=== PATIENT | female | born 1935 | race Caucasian/White ===

== ENCOUNTER 2019-07-31 14:46 | Emergency (ER) | payer OTHER ==
--- NOTE | 2019-07-31 16:04 | ER ---
Nurse's Notes [facility] Name: Dione Grady Age: 83 yrs Sex: Female : 1935 Arrival Date: 07/31/2019 Time: 14:46 Bed 23 Private MD: Unknown, Unknown Diagnosis: Pain in right hand Presentation: 07/31 15:02 Presenting complaint: Patient states: "Swatted a gnat on the wall with right hand and ss now right middle finger is hurting really bad." Bruising noted to right middle knuckle and pt reports hitting the wall with the palm of her hand. Transition of care: patient was not received from another setting of care. Onset of symptoms was July 31, 2019 at 12:30. Risk Assessment: Do you want to hurt yourself or someone else? Patient reports no desire to harm self or others. Initial Sepsis Screen: Does the patient meet any 2 criteria? No. Patient's initial sepsis screen is negative. Does the patient have a suspected source of infection? No. Patient's initial sepsis screen is negative. Care prior to arrival: Splint applied. 15:02 Method Of Arrival: Ambulatory ss 15:02 Acuity: CRISTÓBAL 4 ss Triage Assessment: 15:05 General: Appears in no apparent distress. uncomfortable, Behavior is calm, cooperative, ss appropriate for age. Pain: Complains of pain in dorsal aspect of proximal phalanx of right middle finger Pain currently is 8 out of 10 on a pain scale. Neuro: Level of Consciousness is awake, alert, obeys commands, Oriented to person, place, time, situation. Cardiovascular: Patient's skin is warm and dry. Respiratory: Airway is patent Respiratory effort is even, unlabored, Respiratory pattern is regular, symmetrical. Musculoskeletal: Range of motion: intact in all extremities, Swelling present in dorsal aspect of proximal phalanx of right middle finger. Injury Description: Bruise sustained to dorsal aspect of proximal phalanx of right middle finger. Historical: - Allergies: 15:05 Codeine; ss - Home Meds: 15:05 None [Active]; ss - PMHx: 15:05 None; ss - PSHx: 15:05 partial thyroidectomy; Carpal Tunnel Repair; Knee surgery; sinus; ss - Immunization history:: Adult Immunizations up to date. - Social history:: Smoking status: Patient/guardian denies using tobacco. - Ebola Screening: : No symptoms or risks identified at this time. Screenin:28 Abuse screen: Denies threats or abuse. Denies injuries from another. Nutritional rv screening: No deficits noted. Tuberculosis screening: No symptoms or risk factors identified. Fall Risk None identified. Assessment: 16:27 General: Appears in no apparent distress. comfortable, Behavior is calm, cooperative. rv Pain: Complains of pain in right hand. Neuro: Level of Consciousness is awake, alert, obeys commands, Oriented to person, place, time, situation. Cardiovascular: Capillary refill < 3 seconds. Respiratory: Airway is patent. GI: No signs and/or symptoms were reported involving the gastrointestinal system. : No signs and/or symptoms were reported regarding the genitourinary system. EENT: No signs and/or symptoms were reported regarding the EENT system. Derm: Bruising that is dark purple. Musculoskeletal: No signs and/or symptoms reported regarding the musculoskeletal system. Vital Signs: 15:05 BP 135 / 72; Pulse 70; Resp 18 S; Temp 97.2(TE); Pulse Ox 100% on R/A; Pain 8/10; ss ED Course: 14:46 Patient arrived in ED. ag5 14:47 Unknown, Unknown is Private Physician. ag5 14:59 Jesús Martínez FNP-C is PHCP. la1 14:59 Jesús Martínez FNP-C is PHCP. la1 14:59 Raciel Gastelum MD is Attending Physician. la1 15:04 Triage completed. ss 15:05 Arm band placed on right wrist. ss 15:14 Aroldo Bangura, CARRIE is Primary Nurse. rv 15:18 Patient maintains SpO2 saturation greater than 95% on room air. jp3 15:19 Bed in low position. Call light in reach. Warm blanket given. Ice pack to injury. jp3 Verbal reassurance given. Pulse ox on. NIBP on. 15:44 Hand Right 3 View XRAY In Process Unspecified. EDMS 15:45 X-ray(s) taken. jp3 16:28 No provider procedures requiring assistance completed. Patient did not have IV access rv during this emergency room visit. Administered Medications: No medications were administered Outcome: 16:00 Discharge ordered by . la1 16:28 Discharged to home ambulatory. rv 16:28 Condition: good 16:28 Discharge instructions given to patient, Instructed on discharge instructions, follow up and referral plans. Demonstrated understanding of instructions, follow-up care. 16:29 Patient left the ED. rv Signatures: Dispatcher [employer] EDTammei Yee RN RN ss Jesús Martínez, AUDIO VISUAL TECH-C AUDIO VISUAL TECH-Cla1 Aroldo Bangura RN RN rv Michael Batista jp3 Aishwarya Packer 5
--- NOTE | 2019-07-31 16:05 | EDPHYS ---
Physician Documentation [facility] Name: Dione Grady Age: 83 yrs Sex: Female : 1935 Arrival Date: 07/31/2019 Time: 14:46 Bed 23 Private MD: Unknown, Unknown ED Physician Raciel Gastelum HPI: 07/31 15:23 This 83 yrs old Female presents to ER via Ambulatory with complaints of la1 Finger Injury, Hand Injury. 15:23 Trauma demographics: County: The injury occurred in [place]. Mechanism of injury: la1 swatting at gnat. Associated injuries: The patient sustained right hand and dorsal aspect of proximal phalanx of right middle finger, ecchymosis, painful injury, swelling. Onset: The symptoms/episode began/occurred this morning. The patient has not experienced similar symptoms in the past. PT was at home and attempted to swat a gnat. After swatting her right hand began swelling and having pain at the base of her right third finger. Historical: - Allergies: 15:05 Codeine; ss - Home Meds: 15:05 None [Active]; ss - PMHx: 15:05 None; ss - PSHx: 15:05 partial thyroidectomy; Carpal Tunnel Repair; Knee surgery; sinus; ss - Immunization history:: Adult Immunizations up to date. - Social history:: Smoking status: Patient/guardian denies using tobacco. - Ebola Screening: : No symptoms or risks identified at this time. ROS: 15:25 Constitutional: Negative for fever, chills, and weight loss, Eyes: Negative for injury, la1 pain, redness, and discharge, ENT: Negative for injury, pain, and discharge, Neck: Negative for injury, pain, and swelling, Cardiovascular: Negative for chest pain, palpitations, and edema, Respiratory: Negative for shortness of breath, cough, wheezing, and pleuritic chest pain, Abdomen/GI: Negative for abdominal pain, nausea, vomiting, diarrhea, and constipation, Back: Negative for injury and pain. 15:25 MS/extremity: Positive for ecchymosis, pain, of the right hand and dorsal aspect of proximal phalanx of right middle finger. Exam: 15:25 Constitutional: This is a well developed, well nourished patient who is awake, alert, la1 and in no acute distress. Head/Face: Normocephalic, atraumatic. Chest/axilla: Normal chest wall appearance and motion. Nontender with no deformity. No lesions are appreciated. Cardiovascular: Normal PMI, no JVD. No pulse deficits. Respiratory: No increased work of breathing, no retractions or nasal flaring. 15:25 Musculoskeletal/extremity: Extremities: noted in the right hand and dorsal aspect of proximal phalanx of right middle finger: decreased ROM, ecchymosis, pain, swelling, tenderness, Circulation is intact in all extremities. Pulses: are normal with no appreciated deficits, Perfusion: the patient is normally perfused throughout, pink, Perfusion: the extremity is normally perfused throughout, pink, Sensation intact. Vital Signs: 15:05 BP 135 / 72; Pulse 70; Resp 18 S; Temp 97.2(TE); Pulse Ox 100% on R/A; Pain 8/10; ss MDM: 15:11 Patient medically screened. he 15:56 Data reviewed: vital signs, radiologic studies, and as a result, I will discharge la1 patient. Data interpreted: Pulse oximetry: on room air is 100 %. Interpretation: normal. Counseling: I had a detailed discussion with the patient and/or guardian regarding: the historical points, exam findings, and any diagnostic results supporting the discharge/admit diagnosis, radiology results, the need for outpatient follow up, a family practitioner, to return to the emergency department if symptoms worsen or persist or if there are any questions or concerns that arise at home. ED course: No displaced fractures identified on wet read of the plain film three view. Pain is under control in ED, neurovascular status intact.. 07/31 15:10 Order name: Hand Right 3 View XRAY la1 Administered Medications: No medications were administered Disposition: 17:15 Co-signature as Attending Physician, Raciel Gastelum MD I agree with the assessment and he plan of care. Disposition: 07/31/19 16:00 Discharged to Home. Impression: Pain in right hand. - Condition is Stable. - Discharge Instructions: Musculoskeletal Pain, Hand Pain. - Medication Reconciliation Form, Thank You Letter form. - Follow up: Private Physician; When: 2 - 3 days; Reason: Recheck today's complaints, Re-evaluation by your physician. - Problem is new. - Symptoms have improved. Signatures: Dispatcher [employer] Raciel Jama MD MD he Smirch, Tammie, RN RN ss Jesús Martínez, COLLECTIONS CLERK-C COLLECTIONS CLERK-Cla1 Aroldo Bangura, RN RN rv Corrections: (The following items were deleted from the chart) 16:29 16:00 07/31/2019 16:00 Discharged to Home. Impression: Pain in right hand. Condition is rv Stable. Forms are Medication Reconciliation Form, Thank You Letter, Antibiotic Education, Prescription Opioid Use. Follow up: Private Physician; When: 2 - 3 days; Reason: Recheck today's complaints, Re-evaluation by your physician. Problem is new. Symptoms have improved. la1
[2019-07-31 16:36] VITALS: BP 135/72; TEMP 97.2; O2SAT 100
--- NOTE | 2019-07-31 16:53 | RAD REPORT ---
EXAM DESCRIPTION: RAD - Hand Right 3 View - 07/31/2019 3:44 pm CLINICAL HISTORY: Right hand pain following trauma pain primarily third digit COMPARISON: None. FINDINGS: No fractures identified. There is ventral partial subluxation of the second and third prox imal phalanges at the MCP joints. No dislocation. No periosteal reaction. IP joint and MCP joint spac e narrowing present. No erosive component. Degenerative change present at the scaphoid trapezium tera culation. No foreign body or other soft tissue abnormality. IMPRESSION: No fracture changes are identifiable. Patient does have slight ventral subluxation of th e second and third proximal phalanges at the MCP joints.
== END 2019-07-31 16:29 | disposition home or self-care (01) ==
LOC: ER 14:46
DX: M79.641 Pain in right hand (principal); W22.8XXA Striking against or struck by other objects, initial encounter; Y93.9 Activity, unspecified; Y92.9 Unspecified place or not applicable; Z88.6 Allergy status to analgesic agent
CPT/HCPCS: 99284

== ENCOUNTER 2022-08-10 10:25 | Emergency (ER) | payer OTHER ==
--- NOTE | 2022-08-10 11:01 | RAD REPORT ---
EXAM DESCRIPTION: RAD - Chest Single View - 08/10/2022 10:54 am CLINICAL HISTORY: COUGH COMPARISON: CHEST PA AND LAT 2 VIEW dated 05/19/2012 FINDINGS: Lines: None. Lungs: No evidence of edema or pneumonia. Pleural: No significant pleural effusions or pneumothorax. Cardiac: The heart size is within normal limits. Mediastinum: Within normal limits. Bones: No acute fractures. Other: None IMPRESSION: No acute cardiopulmonary disease.
[2022-08-10 11:36] LABS: SARS-COV-2 RT PCR POSITIVE (NEGATIVE)
--- NOTE | 2022-08-10 11:42 | EDPHYS ---
Physician Documentation [facility] Name: Dione Grady Age: 86 yrs Sex: Female : 1935 Arrival Date: 08/10/2022 Time: 10:28 Bed DIS1 Private MD: ED Physician Donald Ceballos HPI: 08/10 10:37 This 86 yrs old Female presents to ER via Ambulatory with complaints of Cough. jmm 10:37 The patient or guardian reports cough. Onset: The symptoms/episode began/occurred jmm gradually, last night. Modifying factors: The symptoms are alleviated by nothing. This is an 86 year old female with no chronic medical conditions that presents to the ED with complaints cough with inferior sternal pain beginning last night. Patient denies sob, fever. Denies vomiting or diarrhea. . Historical: - Allergies: 10:35 No Known Allergies; kb3 - Home Meds: 10:35 None [Active]; kb3 - PMHx: 10:35 None; kb3 - PSHx: 10:35 None; kb3 - Immunization history:: Adult Immunizations up to date, Client reports receiving the 2nd dose of the Covid vaccine, Last tetanus immunization: unknown. - Social history:: Smoking status: Patient denies any tobacco usage or history of. ROS: 10:37 Constitutional: Negative for fever, chills, and weight loss. jmm 10:37 Cardiovascular: Positive for chest pain, with cough. 10:37 Respiratory: Positive for cough. 10:37 All other systems are negative. Exam: 10:37 Constitutional: This is a well developed, well nourished patient who is awake, alert, jmm and in no acute distress. Head/Face: atraumatic. Eyes: EOMI, no conjunctival erythema appreciated ENT: Moist Mucus Membranes Neck: Trachea midline, Supple 10:37 Cardiovascular: Regular rate and rhythm. No edema appreciated Respiratory: Normal respirations, no respiratory distress appreciated Abdomen/GI: Non distended Back: Normal ROM 10:37 Skin: General appearance color normal MS/ Extremity: Moves all extremities, no obvious deformities appreciated, no edema noted to the lower extremities Neuro: Awake and alert Psych: Behavior is normal, Mood is normal, Patient is cooperative and pleasant 10:37 Chest/axilla: Palpation: tenderness, that is moderate, of the xiphoid area. 10:37 Abdomen/GI: Inspection: abdomen appears normal, Palpation: abdomen is soft and non-tender, in all quadrants. Vital Signs: 10:32 BP 132 / 75; Pulse 77; Resp 20; Temp 98.1; Pulse Ox 100% ; Weight 58.97 kg; Height 5 kb3 ft. 3 in. (160.02 cm); Pain 0/10; 10:32 Body Mass Index 23.03 (58.97 kg, 160.02 cm) kb3 MDM: 10:42 Patient medically screened. [facility] 11:36 Data reviewed: vital signs, nurses notes. Counseling: I had a detailed discussion with [facility] the patient and/or guardian regarding: the historical points, exam findings, and any diagnostic results supporting the discharge/admit diagnosis. 11:36 Counseling: I had a detailed discussion with the patient and/or guardian regarding: lab m results, radiology results, the need for outpatient follow up. 11:40 ED course: Patient is alert and non toxic in appearance in the ED. No signs of resp [facility] distress. Patient advised to follow up with pcp and otherwise given strict return precautions. Patient understood and agrees with the plan of care. . 08/10 10:36 Order name: COVID-19/FLU A+B; Complete Time: 11:37 [facility] 08/10 10:36 Order name: Chest Single View XRAY; Complete Time: 11:04 [facility] Administered Medications: No medications were administered Disposition: 18:00 Co-signature as Attending Physician, Donald COBB was immediately available on-site ms3 in the Emergency Department for consultation in the care of the patient. Disposition Summary: 08/10/22 11:42 Discharge Ordered Location: Home [facility] Condition: Stable [facility] Diagnosis - Coronavirus infection, unspecified [facility] Followup: [facility] - With: Private Physician - When: 2 - 3 days - Reason: Recheck today's complaints, Continuance of care, Re-evaluation by your physician Discharge Instructions: - Discharge Summary Sheet [facility] - COVID-19 [facility] Forms: - Medication Reconciliation Form [facility] - Thank You Letter [facility] - Antibiotic Education [facility] - Prescription Opioid Use [facility] Prescriptions: - benzonatate 200 mg Oral Capsule - take 1 capsule by ORAL route 3 times per day as needed; 20 capsule; Refills: 0, [facility] Product Selection Permitted Signatures: Dispatcher [employer] Jamaal Ramos PA PA jmm Sims, Marcus, DO DO ms3 Kianna Feliciano, RN RN kb3 Corrections: (The following items were deleted from the chart) 10:35 10:35 Allergies: Codeine; kb3 kb3
--- NOTE | 2022-08-10 11:42 | ER ---
Nurse's Notes [facility] Name: Dione Grady Age: 86 yrs Sex: Female : 1935 Arrival Date: 08/10/2022 Time: 10:28 Bed DIS1 Private MD: Diagnosis: Coronavirus infection, unspecified Presentation: 08/10 10:32 Chief complaint: Patient states: Pt reports dry hacking cough that began last night. kb3 Denies fever, congestion, no sick contacts. Reports pain in lower chest/eigastric region only when coughing that began this morning. Coronavirus screen: Vaccine status: Patient reports receiving the 2nd dose of the covid vaccine. Client denies travel out of the [place] in the last 14 days. Ebola Screen: Patient negative for fever greater than or equal to 101.5 degrees Fahrenheit, and additional compatible Ebola Virus Disease symptoms Patient denies exposure to infectious person. Patient denies travel to an Ebola-affected area in the 21 days before illness onset. Initial Sepsis Screen: Does the patient meet any 2 criteria? No. Patient's initial sepsis screen is negative. Does the patient have a suspected source of infection? No. Patient's initial sepsis screen is negative. Risk Assessment: Do you want to hurt yourself or someone else? Patient reports no desire to harm self or others. Onset of symptoms was August 10, 2022 at 03:00. 10:32 Method Of Arrival: Ambulatory kb3 10:32 Acuity: CRISTÓBAL 4 kb3 Triage Assessment: 10:35 General: Appears in no apparent distress. Behavior is calm, cooperative. Pain: Denies kb3 pain. Historical: - Allergies: 10:35 No Known Allergies; kb3 - Home Meds: 10:35 None [Active]; kb3 - PMHx: 10:35 None; kb3 - PSHx: 10:35 None; kb3 - Immunization history:: Adult Immunizations up to date, Client reports receiving the 2nd dose of the Covid vaccine, Last tetanus immunization: unknown. - Social history:: Smoking status: Patient denies any tobacco usage or history of. Screenin:40 [facility] ED Fall Risk Assessment (Adult) History of falling in the last 3 months, kb3 including since admission No falls in past 3 months (0 pts) Confusion or Disorientation No (0 pts) Intoxicated or Sedated No (0 pts) Impaired Gait No (0 pts) Mobility Assist Device Used No (0 pt) Altered Elimination No (0 pt) Score/Fall Risk Level 0 - 2 = Low Risk Oriented to surroundings, Maintained a safe environment, Educated pt \T\ family on fall prevention, incl call for assistance when getting out of bed, Assessed \T\ reinforced patient's understanding of fall precautions, Hourly rounding (assess needs \T\ fall precautionary measures) done. Abuse screen: Denies threats or abuse. Denies injuries from another. Nutritional screening: No deficits noted. Tuberculosis screening: No symptoms or risk factors identified. Assessment: 10:40 General: see triage note. kb3 10:40 Respiratory: Reports cough that is Airway is patent Respiratory effort is even, kb3 unlabored, Breath sounds are clear bilaterally. Vital Signs: 10:32 BP 132 / 75; Pulse 77; Resp 20; Temp 98.1; Pulse Ox 100% ; Weight 58.97 kg; Height 5 kb3 ft. 3 in. (160.02 cm); Pain 0/10; 10:32 Body Mass Index 23.03 (58.97 kg, 160.02 cm) kb3 ED Course: 10:28 Patient arrived in ED. mr 10:33 Jamaal Gomez PA is PHCP. jmm 10:33 Donald Ceballos DO is Attending Physician. jmm 10:35 Triage completed. kb3 10:35 Arm band placed on right wrist. kb3 10:40 Kianna Feliciano, RN is Primary Nurse. kb3 10:40 Patient has correct armband on for positive identification. kb3 10:40 No provider procedures requiring assistance completed. Patient did not have IV access kb3 during this emergency room visit. 10:45 COVID-19/FLU A+B Sent. kb3 10:56 Chest Single View XRAY In Process Unspecified. EDMS Administered Medications: No medications were administered Medication: 10:40 VIS not applicable for this client. kb3 Outcome: 11:42 Discharge ordered by . [facility] 11:57 Discharged to home ambulatory. kb3 11:57 Condition: stable 11:57 Discharge instructions given to patient, Instructed on discharge instructions, follow up and referral plans. medication usage, Demonstrated understanding of instructions, follow-up care, medications, Prescriptions given X 1. 11:57 Patient left the ED. kb3 Signatures: Dispatcher [employer] EDMS Jamaal Gomez PA PA jmm GroverDione mr iKanna Feliciano RN RN kb3 Corrections: (The following items were deleted from the chart) 10:35 10:35 Allergies: Codeine; kb3 kb3 10:36 10:32 Chief complaint: Patient states: Pt reports dry hacking cough that began last kb3 night. Denies fever, congestion, no sick contacts. Reports pain in lower chest/eigastric region with cough this morning kb3
[2022-08-10 12:02] VITALS: BP 132/75; TEMP 98.1; O2SAT 100
== END 2022-08-10 11:57 | disposition home or self-care (01) ==
LOC: ER 10:25
DX: U07.1 COVID-19 (principal)
CPT/HCPCS: 0240U; 71045; 99283